=== PATIENT | male | born 1985 | race Caucasian/White ===

== ENCOUNTER 2018-05-12 15:27 | Emergency (ER) | payer MEDICAID ==
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
[2018-05-12 15:41] VITALS: BP 122/60
--- NOTE | 2018-05-12 16:04 | RAD ---
Indication: Right foot pain. 3 views of the right foot are reviewed. There is internal fixation of the distal fibula. No fracture is noted. No other bone or joint abnormality is noted. IMPRESSION: No fracture of the right foot is noted. Old injury of the distal fibula.
== END 2018-05-12 16:29 | disposition home or self-care (01) ==
LOC: UCEAST 15:27
DX: R20.0 Anesthesia of skin (principal); Z87.828 Personal history of other (healed) physical injury and trauma
CPT/HCPCS: 99211; G0463

== ENCOUNTER 2018-05-17 14:00 | Emergency (ER) | payer SELFPAY ==
[2018-05-17 14:14] VITALS: BP 114/67
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
== END 2018-05-17 14:36 | disposition home or self-care (01) ==
LOC: ED 14:00
DX: M25.511 Pain in right shoulder (principal)
CPT/HCPCS: 99281